=== PATIENT | female | born 1970 | race Two or more races ===

== ENCOUNTER 2024-07-21 14:20 | Emergency (ER) | payer OTHER ==
[~2024-07-21] VITALS: Ht 180.3 cm; Wt 83.9 kg
[2024-07-21] MEDS ORDERED: LIDOCAINE 1%-EPI 1:100,000 20 ML VIAL ONE (17:19)
[2024-07-21] MEDS: LIDOCAINE 1%-EPI 1:100,000 50 ML VIAL IJ ONE (17:27)
[2024-07-21] MEDS ORDERED: ACET-2030 PO (19:14)
[2024-07-21] MEDS ORDERED: KETO10TA2 PO (19:14)
[2024-07-21 19:47] VITALS: BP 132/80; TEMP 98.4; O2SAT 99
== END 2024-07-21 19:48 | disposition home or self-care (01) ==
LOC: ER 14:23
DX: S92.351A Displaced fracture of fifth metatarsal bone, right foot, initial encounter for closed fracture (principal); S52.572A Other intraarticular fracture of lower end of left radius, initial encounter for closed fracture; S52.612A Displaced fracture of left ulna styloid process, initial encounter for closed fracture; W18.39XA Other fall on same level, initial encounter; Y93.89 Activity, other specified; Y92.89 Other specified places as the place of occurrence of the external cause; Y99.8 Other external cause status
CPT/HCPCS: 25605; 29515; 73090; 73110; 73610; 73620; 99284; J3490

== ENCOUNTER 2024-07-22 02:00 | Emergency (ER) | payer OTHER ==
[~2024-07-22] VITALS: Ht 180.3 cm; Wt 83.9 kg
[~2024-07-22 02:00] MED LIST: ACET-2030 PO; KETO10TA2 PO
[2024-07-22 02:06] VITALS: BP 135/88; TEMP 98; O2SAT 100
[2024-07-22] MEDS ORDERED: HYDROCODONE/APAP 10/325MG TABLET ONE (02:23)
[2024-07-22] MEDS ORDERED: KETOROLAC TROMETHAMINE INJ 60 MG/2 ML VIAL IM ONE (02:23)
[2024-07-22] MEDS: KETOROLAC TROMETHAMINE INJ 60 MG/2 ML VIAL IM ONE (02:30)
[2024-07-22] MEDS: HYDROCODONE/APAP 10/325MG TABLET PO ONE (02:30)
== END 2024-07-22 06:14 | disposition home or self-care (01) ==
LOC: ER 02:01
DX: S52.572A Other intraarticular fracture of lower end of left radius, initial encounter for closed fracture (principal); S52.612A Displaced fracture of left ulna styloid process, initial encounter for closed fracture; R20.0 Anesthesia of skin; X58.XXXA Exposure to other specified factors, initial encounter; Y93.89 Activity, other specified; Y92.89 Other specified places as the place of occurrence of the external cause; Y99.8 Other external cause status
CPT/HCPCS: 73110; J1885